=== PATIENT | male | born 1985 | race Caucasian/White ===

== ENCOUNTER 2024-09-22 12:12 | Emergency (ER) | payer OTHER, SELFPAY ==
[2024-09-22 12:22] VITALS: BP 141/93; PULSE 70; RESP 20; TEMP 36.8; O2SAT 97
--- NOTE | 2024-09-22 13:52 | ED_ITS ---
HPI - Back Pain/Injury General: Chief Complaint: Back Pain/Injury Stated Complaint: lower back pain Time Seen by Provider: 09/22/24 13:12 Source: patient Mode of arrival: ambulatory Limitations: no limitations History of Present Illness: Patient is a 38-year-old male that presents to the emergency department with increasing pain in his low back. He states he has had chronic back pain in the past that has radiated down his right leg but it is now starting to occur on the left side as well. He denies any fever or chills. He denies loss of bowel or bladder control. He denies any weakness or numbness. He states he has had multiple spinal injections and 2 spinal nerve ablations on his low back which have helped but have not been permanent. He does not report any pain or burning with urination. He messaged his doctor at the [facility] and she recommended that he come into the emergency department as he may need a Toradol injection or some prednisone. The patient states he has been using tizanidine which does help a little bit but does not take care of his pain completely. Associated symptoms: Reports difficulty walking (Due to the pain in the low b ack); Deny abdominal pain, chills, fever(s), nausea or vomiting Related Data Previous Rx's ?Medication ?Instructions ?Recorded methocarbamol 750 mg tablet 1,500 mg (2 x 750 mg) PO T ID PRN 09/22/24 muscle pain #30 tabs prednisone 20 mg tablet 40 mg (2 x 20 mg) PO DAILY 5 days 09/22/24 #20 tabs Allergies Allergy/AdvReac Type Severity Reaction Status Date / Time Penicillins Allergy Unknown Verified 09/22/24 12:33 Review of Systems General: Reports: 10 or more systems reviewed and unremarkable except in HPI and below Const: Denies: fever(s) or chills ENMT: Denies: throat pain Card: Denies: chest pain Resp: Denies: dyspnea, productive cough, non-productive cough or wheezing GI: Denies: abdominal pain, nausea or vomiting Musc: Reports: back pain (Bilateral low back that radiates down the back of both legs) Skin/Breast: Denies: rash or erythema Neuro: Reports: difficulty walking (Due to the pain in the low back); Denies: numbness in extremities or weakness in extremities [facility] ED PFSH: Medical History (Updated 09/22/24 @ 14:09 by NOEL Caceres) Lower back injury Surgical History (Updated 09/22/24 @ 13:59 by NOEL Caceres) H/O radiofrequency ablation (RFA) of nerve of lumbar spine H/O shoulder surgery H/O hernia repair Social History (Updated 09/22/24 @ 13:59 by NOEL Caceres) Smoking and tobacco/nicotine status: never used tobacco/nicotine Physical Exam Const: COMMON NORMALS: no acute distress (Patient appears uncomfortable but in no acute distress) and no limitations EXAM LIMITATIONS: no altered mental status GENERAL APPEARANCE: cooperative HENMT: COMMON NORMALS: normocephalic, atraumatic and Normal external nose present HEAD & SCALP: normocephalic and atraumatic NOSE: Normal external nose present Eye: COMMON NORMALS: conjunctivae normal CONJUNCTIVA: Yes conjunctivae normal Neck/C-Spine: COMMON NORMALS: full ROM and no meningeal signs Resp: COMMON NORMALS: normal respiratory effort and clear to auscultation bilaterally EFFORT & INSPECTION: Yes able to speak in complete sentences AUSCULTATION: clear to auscultation bilaterally, no crackles, no rales, no rhonchi and no wheezes Cardio: COMMON NORMALS: regular rate and regular rhythm RATE: regular rate RHYTHM: regular rhythm GI: COMMON NORMALS: Soft to palpation PALPATION: Yes Soft to palpation and No Tenderness to palpation present (GI) Back/Pelvis: GENERAL BACK: Yes tenderness (Bilateral lumbar region with some muscle spasms) LUMBAR SPINE/LOWER BACK: Yes ROM limited (Mildly limited), Yes pain with ROM, Yes paraspinal muscle tenderness and Yes paraspinal muscle spasm Extremity: NARRATIVE EXTREMITY EXAM: Dorsiflexion and plantarflexion of feet and toes strong and equal bilaterally. Sensation intact. Neuro: MENINGEAL SIGNS: Yes no meningeal signs SENSORY EXAM: Yes extremities (No loss of sensation) Psych: COMMON NORMALS: mental status grossly normal Skin: COMMON NORMALS: no rashes or lesions noted GENERAL SKIN EXAM: no rashes or lesions noted Course Vital Signs: Vital signs: Vital Signs Temperature 98.2 F 09/22/24 12:22 Pulse Rate 63 09/22/24 14:20 Respiratory Rate 16 09/22/24 14:20 Blood Pressure 132/85 09/22/24 14:20 Pulse Oximetry 98 09/22/24 14:20 Oxygen Delivery Me thod Room Air 09/22/24 12:22 MDM - Back Pain/Injury Medical Decision Making Patient was advised of the exam and imaging findings. The patient has not had any recent traumatic injury. I recommended that he will probably need an MRI of the spine for further evaluation and treatment but that is not something we can get in the emergency department this day. Because he has had no traumatic injury I recommended against an x-ray at this time. The patient agrees as he has had no traumatic injury. The patient does have radiating pain down both legs that is consistent with lumbar radiculopathy or sciatica. He also has some muscle spasms in the lumbar region. The patient has been on tizanidine and I advise he discontinue this and use the Robaxin as directed. Will also put the patient on a short course of prednisone to use as directed. The patient was driving himself today so we gave him a shot of Toradol in the emergency department but no medications that would alter his awareness. I recommended t hat he follow-up with his primary care provider for further evaluation and treatment. No work today or tomorrow. And return to the emergency department with any worsening symptoms. The patient expressed understanding. Differential Diagnosis Likely lumbar radiculopathy, sciatica and strain of lumbar region No radiology studies performed this visit Critical Care Time Critical Care Time: Critical Care Time: No Discharge Plan Discharge Patient Disposition: Home Clinical Impression: Lumbar radiculopathy Sciatica Qualifiers: Laterality: bilateral Qualified Code(s): M54.31 - Sciatica, right side Condition: Stable Prescriptions: New methocarbamol 750 mg tablet 1,500 mg PO TID PRN (Reason: muscle pain) Qty: 30 0RF prednisone 20 mg tablet 40 mg PO DAILY 5 Days Qty: 20 0RF Discharge Orders: Discharge ED (Routine); Ordered 09/22/24 Ordered By: Obed Matt Discharge Diet: Usual diet Discharge Activity: Limit activity as instructed Patient Instructions: Sciatica (ED), Lower Back Exercises (ED), Opioid Safety, Pain Management Activity Restrictions/Additional Instructions: Hold your tizanidine. Take the new medications as directed. Your prescriptions are sent electronically to [facility] pharmacy in [place]. Avoid activities make the pain worse. No heavy lifting, or bending but you may walk and gently stretch. Alternate ice and heat to the back; ice for 20 minutes, then nothing for 20 minutes, then heat for 20 minutes. Repeat 4-5 times throughout the day. Follow-up with your doctor in 1 week for recheck. No work today or tomorrow. Return to the emergency department with any worsening symptoms. 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
[2024-09-22] MEDS: ketorolac 30 mg/mL INJ 15 MG IM (14:04)
[2024-09-22 14:20] VITALS: BP 132/85; PULSE 63; RESP 16; O2SAT 98
== END 2024-09-22 14:21 | disposition home or self-care (01) ==
PROVIDERS: Emergency Provider Physician Assistant
DX: M54.16 Radiculopathy, lumbar region (principal); M54.31 Sciatica, right side
CPT/HCPCS: 12345; 96372; 99284; J1885

== ENCOUNTER 2024-10-10 11:51 | Emergency (ER) | payer OTHER, SELFPAY ==
[2024-10-10 12:10] VITALS: BP 158/98; PULSE 69; TEMP 36.6; O2SAT 100; BMI 24.3
[2024-10-10 13:09] LABS: Basophils % 0.5 %; Eosinophils # 0.1 10^3/uL (0.0-0.8); Eosinophils % 1.3 %; Hematocrit 46.9 % (37-53); Lymphocytes # 1.1 10^3/uL (0.8-4.8); Lymphocytes % 28.6 %; Mean Corpuscular HGB Conc 33.5 g/dL (30-55); Mean Corpuscular Hemoglobin 30.9 pg (27-33); Mean Corpuscular Volume 92.3 fl (82-101); Monocytes # 0.3 10^3/uL (0.2-0.9); Monocytes % 6.5 %; Neutrophils # 2.51 10^3/uL (1.8-7.7); Neutrophils % 62.8 %; Nucleated Red Blood Cells % 0 %; Platelet Count 230 10^3/cmm (157-399); Red Blood Count 5.08 10^6/uL (3.85-5.65); Red Cell Distribution Width 12.5 % (12.1-15.1); White Blood Count 3.99 10^3/uL (3.29-11.43)
[2024-10-10 13:44] VITALS: PULSE 54; O2SAT 98
[2024-10-10 13:44] LABS: Alanine Aminotransferase 19 U/L (0-41); Albumin Level 4.9 g/dL (3.5-5.2); Alkaline Phosphatase 72 U/L (40-130); Aspartate Amino Transferase 16 U/L (0-40); Blood Urea Nitrogen 12 mg/dL (6-20); Calcium 9.4 mg/dL (8.5-10.5); Carbon Dioxide 25 mmol/L (22-29); Chloride 101 mmol/L (98-107); Creatinine Clr Calc Pharmacy 108.1327; Globulin 2.9 g/dL (1.3-4.6); Glomerular Filtration Rate 93.5 mL/min (90-130); Glucose 91 mg/dL (65-115); Lipase 35 U/L (13-60); Osmolality Calculated 281 mOsm/kg (285-295); Sodium 136 mmol/L (136-145); Total Bilirubin 0.4 mg/dL (0.15-1.2); Total Protein 7.8 g/dL (6.6-8.7)
--- NOTE | 2024-10-10 14:02 | US_ITS ---
WS: [id number] TESTICULAR ULTRASOUND HISTORY: right testicle pain COMPARISON: None available. TECHNIQUE: Real-time and color Doppler imaging utilized to perform a testicular ultrasound. Right testicle: 4.2 cm x 2.9 cm x 2.4 cm. Normal size and echogenicity. No mass or torsion. Normal color Doppler is present throughout. Systolic and diastolic velocities are both present. No significant hydrocele. Right epididymis: Normal epididymis with no increased vascularity. Increased soft tissue in the RIGHT inguinal canal. Hernia suspected. No peristalsing loop of bowel identified. Left testicle: 4.1 cm x 3.0 cm x 2.3 cm. Normal size and echogenicity. No mass or torsion. Normal color Doppler is present throughout. Systolic and diastolic velocities are both present. No significant hydrocele. Left epididymis: Normal epididymis with no increased vascularity. US/US scrotum [id number] IMPRESSION: 1. No testicular mass or torsion. 2. No hydrocele. 3. Possible RIGHT inguinal hernia. No peristalsing loop of bowel identified. T his can be further evaluated by CT.
[2024-10-10] MEDS: ondansetron 2 mg/ML SDV 2 mL 4 MG IVP (14:13)
--- NOTE | 2024-10-10 14:13 | W.ED.ABDPA2 ---
HPI - Abdominal Pain General: Chief Complaint: Abdominal Pain Stated Complaint: abd pain Time Seen by Provider: 10/10/24 11:55 Source: patient Mode of arrival: ambulatory Limitations: no limitations History of Present Illness: 38-year-old male states he started having right lower quadrant abdominal pain this morning is also having pain in his right groin and his right testicle. States been sharp pains much worse with movement it is improved with rest. He denies any vomiting diarrhea he denies any penile drainage states he is concerned about possible STD as he has had multiple sex partners. Associated Symptoms: Denies chills, diarrhea, dysuria, fever(s), nausea and vomiting Related Data Home Medications ?Medication ?Instructions ?Recorded ?Confirmed No Known Home Medications 10/10/24 10/10/24 Allergies Allergy/AdvReac Type Severity Reaction Status Date / Time Penicillins Allergy Unknown Verified 10/10/24 12:14 Review of Systems Const: Denies: fever(s), chills, body aches or change in appetite ENMT: Denies: throat pain or dental pain Card: Denies: chest pain Resp: Denies: dyspnea GI: Reports: abdominal pain; Denies: nausea, vomiting or diarrhea : Reports: testicular pain; Denies: dysuria Musc: Denies: neck pain or back pain Skin/Breast: Denies: rash Neuro: Denies: headache(s) [facility] ED PFSH: Medical History Lower back injury Surgical History H/O radiofrequency ablation (RFA) of nerve of lumbar spine H/O shoulder surgery H/O hernia repair Social History Smoking and tobacco/nicotine status: never used tobacco/nicotine Physical Exam Const: COMMON NORMALS: no acute distress, patient oriented x3 and healthy appearing HENMT: COMMON NORMALS: normocephalic and atraumatic HEAD & SCALP: normocephalic and atraumatic Eye: COMMON NORMALS: conjunctivae normal CONJUNCTIVA: Yes conjunctivae normal Neck/C-Spine: COMMON NORMALS: full ROM and supple Chest: COMMONS NORMALS: normal inspection of the chest Resp: COMMON NORMALS: normal respiratory effort Cardio: COMMON NORMALS: regular rate, regular rhythm and No murmurs present (Cardio) RATE: regular rate RHYTHM: regular rhythm GI: COMMON NORMALS: Normal to inspection, nondistended, normoactive bowel sounds present, Soft to palpation and no masses PALPATION: Yes Soft to palpation OTHER: tenderness in right groin Extremity: COMMON NORMALS: normal to inspection and full ROM Neuro: COMMON NORMALS: patient oriented x3, moves all extremities and no focal motor deficits Psych: COMMON NORMALS: mental status grossly normal, Normal thought process present and cooperative THOUGHT PROCESS: Normal thought process present Skin: COMMON NORMALS: no rashes or lesions noted and no wounds GENERAL SKIN EXAM: no rashes or lesions noted Course Vital Signs: Vital signs: Vital Signs Temperature 97.9 F 10/10/24 12:10 Pulse Rate 54 L 10/10/24 13:44 Respiratory Rate 16 10/10/24 14:14 Blood Pressure 158/98 10/10/24 12:10 Pulse Oximetry 98 10/10/24 14:14 Oxygen Delivery Me thod Room Air 10/10/24 12:10 MDM - Abdominal Pain Medical Decision Making Patient presents here with abdominal pain and groin pain ultrasound of his testicle here is normal he has no signs UTI blood works normal CAT scan is normal could be a muscle strain he stable for discharge he is follow-up with PCP and return if worsening he understands agrees to plan. Medical Records I reviewed the patient's medical records. Lab Data I reviewed the patient's lab results. 10/10/24 12:47 10/10/24 12:47 Labs/Radiology: Radiology Impressions Scrotum Ultrasound 10/10/24 14:02 IMPRESSION: 1. No testicular mass or torsion. 2. No hydrocele. 3. Possible RIGHT inguinal hernia. No peristalsing loop of bowel identified. This can be further evaluated by CT. Abdomen/Pelvis CT 10/10/24 14:43 IMPRESSION: 1. No inguinal hernia. 2. No GI tract obstruction. No appendicitis. 3. No renal obstruction. 4. No ascites or adenopathy. Laboratory Results WBC 3.99 10^3/uL (3.29-11.43) 10/10/24 12:47 RBC 5.08 10^6/uL (3.85-5.65) 10/10/24 12:47 Hgb 15.70 g/dL (11.27-16.99) 10/10/24 12:47 Hct 46.9 % (37-53) 10/10/24 12:47 MCV 92.3 fl (82-101) 10/10/24 12:47 MCH 30.9 pg (27-33) 10/10/24 12:47 MCHC 33.5 g/dL (30-55) 10/10/24 12:47 RDW 12.5 % (12.1-15.1) 10/10/24 12:47 Plt Count 230 10^3/cmm (157-399) 10/10/24 12:47 MPV 10.0 fL (7.4-10.4) 10/10/24 12:47 Neut % (Auto) 62.8 % 10/10/24 12:47 Lymph % (Auto) 28.6 % 10/10/24 12:47 Norton % (Auto) 6.5 % 10/10/24 12:47 Eos % (Auto) 1.3 % 10/10/24 12:47 Baso % (Auto) 0.5 % 10/10/24 12:47 Neut # (Auto) 2.51 10^3/uL (1.8-7.7) 10/10/24 12:47 Lymph # (Auto) 1.1 10^3/uL (0.8-4.8) 10/10/24 12:47 Norton # (Auto) 0.3 10^3/uL (0.2-0.9) 10/10/24 12:47 Eos # (Auto) 0.1 10^3/uL (0.0-0.8) 10/10/24 12:47 Baso # (Auto) 0.0 10^3/uL (0.0-0.1) 10/10/24 12:47 Nucleated RBC % (auto) 0 % 10/10/24 12:47 Nucleated RBCs # 0.0 /100WBC 10/10/24 12:47 Sodium 136 mmol/L (136-145) 10/10/24 12:47 Potassium 4.0 mmol/L (3.5-5.1) 10/10/24 12:47 Chloride 101 mmol/L (98-107) 10/10/24 12:47 Carbon Dioxide 25 mmol/L (22-29) 10/10/24 12:47 Anion Gap 14.0 (5-19) 10/10/24 12:47 BUN 12 mg/dL (6-20) 10/10/24 12:47 Creatinine 0.9 mg/dL (0.7-1.2) 10/10/24 12:47 GFR Calculation 93.5 mL/min (90-130) 10/10/24 12:47 Glucose 91 mg/dL (65-115) 10/10/24 12:47 Calculated Osmolality 281 mOsm/kg (285-295) L 10/10/24 12:47 Calcium 9.4 mg/dL (8.5-10.5) 10/10/24 12:47 Total Bilirubin 0.4 mg/dL (0.15-1.2) 10/10/24 12:47 AST 16 U/L (0-40) 10/10/24 12:47 ALT 19 U/L (0-41) 10/10/24 12:47 Alkaline Phosphatase 72 U/L (40-130) 10/10/24 12:47 Total Protein 7.8 g/dL (6.6-8.7) 10/10/24 12:47 Albumin 4.9 g/dL (3.5-5.2) 10/10/24 12:47 Globulin 2.9 g/dL (1.3-4.6) 10/10/24 12:47 Lipase 35 U/L (13-60) 10/10/24 12:47 Urine Color Yellow (Yellow) 10/10/24 12:40 Urine Appearance Clear (CLEAR) 10/10/24 12:40 Urine pH 5.0 (5-7) 10/10/24 12:40 Ur Specific [place] 1.007 (1.005-1.030) 10/10/24 12:40 Urine Protein Negative (Negative) 10/10/24 12:40 Urine Glucose (UA) Negative (Normal) 10/10/24 12:40 Urine Ketones Negative (Negative) 10/10/24 12:40 Urine Blood Negative (Negative) 10/10/24 12:40 Urine Nitrate Negative (Negative) 10/10/24 12:40 Urine Bilirubin Negative (Negative) 10/10/24 12:40 Urine Urobilinogen 0.2 mg/dL (Negative) 10/10/24 12:40 Ur Leukocyte Esterase Negative (Negative) 10/10/24 12:40 Amorphous Sediment Not Reportable 10/10/24 12:40 All radiology interpretation(s) finalized by discharge Discharge Plan Discharge Patient Disposition: Home Clinical Impression: Abdominal pain Condition: Stable Prescriptions: No Action No Known Home Medications Discharge Orders: Discharge ED (Routine); Ordered 10/10/24 Ordered By: Anselmo Michaels Discharge Diet: Advance as tolerated Discharge Activity: Resume usual activity Patient Instructions: Abdominal Pain (ED) Print Language: Russian Coding Level of Care Code ED Social Work Job Titles for Genoveva Vásquez
[2024-10-10 14:14] VITALS: RESP 16; O2SAT 98
[2024-10-10] MEDS: morphine 4 mg/mL SDV 1 mL IVP (14:14)
--- NOTE | 2024-10-10 14:43 | CT_ITS ---
WS: [id number] CT ABDOMEN AND PELVIS WITH CONTRAST HISTORY: rlq pain TECHNIQUE: Imaging performed of the abdomen and pelvis with IV contrast. Single phase imaging of the abdomen. Coronal and sagittal reformats are submitted. All CT scans at [facility] use at least one of these dose optimization techniques: automated exposure control; mA and/or kV adjustment per patient size (includes targeted exams where dose is matched to clinical indication); or iterative reconstruction. IV CONTRAST: Omnipaque 350; 100 mL IV. Oral contrast: No DLP: 424.74 mGy.cm COMPARISON: None available. Lower thorax: Lung bases are clear. Heart is normal size. No hiatal hernia. Liver/biliary system: Normal size with no intrahepatic dilatation. Gallbladder: Normal. No gallstones or wall thickening. No pericholecystic fluid. Pancreas: Normal size pancreas and pancreatic duct. No adjacent inflammation. Spleen: Normal size spleen. No mass or infarct. Adrenal glands: Normal. Right kidney: Normal size kidney. There are a few scattered calcifications which are nonobstructing. No hydronephrosis or solid mass. Left kidney: Normal. Aorta: Normal. Lymphadenopathy: None. Free fluid: None. GI tract: No appendicitis. No GI tract obstruction. Abdominal wall: Tiny ventral abdominal wall hernia contains fat only. Pelvis: No free fluid or adenopathy within the pelvis. No inguinal hernia. Bones: Grade 1 anterolisthesis of L5 with bilateral pars defects. CT/CT abdomen pelvis w con* [id number] IMPRESSION: 1. No inguinal hernia. 2. No GI tract obstruction. No appendicitis. 3. No renal obstruction. 4. No ascites or adenopathy.
[2024-10-10 14:45] LABS: Add Urine Microscopic? NO
[2024-10-10 14:48] LABS: Bilirubin Urine Negative (Negative); Blood Urine Negative (Negative); Glucose Urine UA Negative (Normal); Ketones Urine Negative (Negative); Leukocyte Esterase Urine Negative (Negative); Nitrate Urine Negative (Negative); Protein Urine Negative (Negative); Specific Gravity, Urine 1.007 (1.005-1.030); Urine Appearance Clear (CLEAR); Urine Color Yellow (Yellow); Urobilinogen Urine 0.2 mg/dL (Negative)
[2024-10-10 14:49] LABS: Charge for UA Resulting for Rev
[2024-10-10] MEDS: iohexol 350 mg/mL 500 mL Btl (per mL) IV (15:05)
[2024-10-10 15:46] VITALS: BP 137/77; PULSE 96; O2SAT 98
[2024-10-10 16:43] LABS: Chlamydia Trachomatis NOT DETECTED; Neisseria Gonorrhea NOT DETECTED
== END 2024-10-10 15:47 | disposition home or self-care (01) ==
PROVIDERS: Physician Assistant; Emergency Provider Emergency Medicine
DX: R10.31 Right lower quadrant pain (principal)
CPT/HCPCS: 36415; 74177; 76870; 80053; 81003; 83690; 85025; 87491; 87591; 96374; 96375; 99285; J2270; J2405